=== PATIENT | male | born 1965 | race Caucasian/White ===

== ENCOUNTER 2021-01-08 13:38 | Emergency (ER) | payer OTHER ==
[~2021-01-08] VITALS: Ht 170.2 cm; Wt 59.0 kg
[2021-01-08 13:38] VITALS: BP_SYST 108
[2021-01-08 15:09] LABS: BASOPHILS # (AUTO) 0.1 K/uL (0.0-0.2); BASOPHILS % (AUTO) 0.7 % (0.0-2.0); EOSINOPHILS # (AUTO) 0.1 K/uL (0.0-0.4); EOSINOPHILS % (AUTO) 1.2 % (0.0-4.0); HEMATOCRIT 36.3 % (36-54); LYMPHOCYTES # (AUTO) 2.5 K/uL (1.0-5.5); LYMPHOCYTES % (AUTO) 28.8 % (20.5-51.5); MEAN CORPUSCULAR HEMOGLOBIN 28 pg (27-31); MEAN CORPUSCULAR HGB CONC 33 % (32-36); MEAN CORPUSCULAR VOLUME 85 fL (79.0-98.0); MONOCYTES # (AUTO) 0.3 K/uL (0.0-1.0); NEUTROPHILS # (AUTO) 5.6 K/uL (1.8-7.7); NEUTROPHILS % (AUTO) 65.3 % (40.0-70.0); PLATELET COUNT (AUTO) 389 K/uL (130-430); RED BLOOD CELL COUNT(AUTO) 4.25 MIL/uL (4.2-6.2); RED CELL DISTRIBUTION WIDTH 15.6 % (9.0-15.0); WHITE BLOOD COUNT (AUTO) 8.6 K/uL (4.8-10.8)
[2021-01-08 15:31] LABS: ANION GAP 13 (5-15); CALCIUM 8.2 mg/dL (8.4-11.0); CHLORIDE 105 mmol/L (98-107); GLUCOSE 114 mg/dL (70-99); SODIUM SERUM 143 mmol/L (136-145); UREA NITROGEN, BLOOD 16 mg/dL (8-21)
[2021-01-08 15:35] LABS: GFR AFRICAN AMERICAN 100 mL/min (>90)
[2021-01-08 15:40] LABS: PROTHROMBIN TIME 10.1 SECS (9.5-12.5)
[2021-01-08 15:46] LABS: ALANINE AMINOTRANSFERASE 16 U/L (12-78); ALBUMIN 3.4 g/dL (3.4-4.8); AMYLASE 166 U/L (0-100); ASPARTATE AMINOTRANSFERASE 11 U/L (10-37); LIPASE 251 U/L (73-393)
[2021-01-08 15:51] LABS: ALCOHOL, BLOOD 459 mg/dL (<10)
[2021-01-08 16:07] LABS: TOTAL BILIRUBIN 0.2 mg/dL (0.0-1.0)
[2021-01-08 16:11] LABS: ACETONE, SERUM NEGATIVE (NEGATIVE)
[2021-01-08 23:21] VITALS: BP_SYST 108
== END 2021-01-08 23:21 | disposition home or self-care (01) ==
LOC: SED 13:38
DX: F10.129 Alcohol abuse with intoxication, unspecified (principal); R41.82 Altered mental status, unspecified; Y90.8 Blood alcohol level of 240 mg/100 ml or more; V43.52XA Car driver injured in collision with other type car in traffic accident, initial encounter; Y93.89 Activity, other specified; Y92.89 Other specified places as the place of occurrence of the external cause; Y99.8 Other external cause status
CPT/HCPCS: 36415; 70450; 71045; 76376; 80053; 82009; 82140; 82150; 83605; 83690; 84484; 85025; 85610; 85730; 99285; G0482

== ENCOUNTER 2024-04-16 19:14 | Emergency (ER) | payer MEDICAID, OTHER ==
[~2024-04-16] VITALS: Ht 167.6 cm; Wt 53.5 kg
[2024-04-16 19:30] VITALS: BP_SYST 119; PULSE 100; RESP 18; TEMP 98.7; O2SAT 97
[2024-04-16] MEDS: chlordiazePOXIDE HCL 25 MG CAPSULE PO ONE (20:18)
[2024-04-16 20:30] VITALS: BP_SYST 132; PULSE 92; RESP 16; TEMP 98.7; O2SAT 97
== END 2024-04-16 20:30 ==
LOC: SED 19:14
DX: Z02.89 Encounter for other administrative examinations (principal); R00.0 Tachycardia, unspecified; I10 Essential (primary) hypertension; F17.200 Nicotine dependence, unspecified, uncomplicated
CPT/HCPCS: 99283